=== PATIENT | female | born 1970 | race Caucasian/White ===

== ENCOUNTER 2019-09-22 09:43 | Day surgery (SDC) | payer OTHER ==
[~2019-09-22 09:43] MED LIST: PROPOFOL INJ 200 MG/20 ML VIAL IV ONE
[2019-09-22 13:09] VITALS: BP 112/79
--- NOTE | 2019-09-22 13:29 | Operative Report ---
Operative Report DATE OF SURGERY: 09/22/19 Operative Report: The risk, benefits and alternatives of the procedure including the risk of bleeding, perforation requiring surgery have been explained to the patient in detail and informed consent has been obtained. The patient is placed in a left, lateral decubital position. Timeout was called. Propofol medication is administered. Rectal examination is done which did not reveal any masses, tears or fissures. An Olympus videoscope was introduced into the patient's rectum. Scope was then carefully advanced all the way to the cecum. Cecum was identified by the usual anatomical landmarks including the ileocecal valve as well as the appendiceal office. Photodocumentation is obtained. Scope was then sequentially pulled back via the various segments of the colon including the ascending colon, back flexure, transverse colon, splenic flexure, descending colon and finally into the rectosigmoid portions of the colon. Retroflexion maneuver is performed. PREOPERATIVE DIAGNOSIS: Colorectal cancer screening POSTOPERATIVE DIAGNOSIS: Normal colonoscopy OPERATION: Diagnostic colonoscopy SURGEON: EM LUNA ANESTHESIA: LMAC TISSUE REMOVED OR ALTERED: None. COMPLICATIONS: None. ESTIMATED BLOOD LOSS: None. INTRAOPERATIVE FINDINGS: Incidental finding of diverticulosis and internal hemorrhoids. PROCEDURE: Patient tolerated the procedure well. No immediate postprocedure complications are noted. Patient is discharged in good condition. Discharge date 09/22/2019. Discharge diet: Regular. Discharge activity: Regular. 2 to 3-week follow-up to discuss findings. Patient is instructed to call the office or proceed to the emergency room should there be any further problems or questions. Because of your family history of colon cancer 5-year surveillance colonoscopy.
== END 2019-09-22 12:10 | disposition home or self-care (01) ==
LOC: OROUT 09:43
PROVIDERS: ATTEND Internal Medicine Gastroenterology
DX: Z88.0 Allergy status to penicillin (principal); K92.1 Melena; Z88.2 Allergy status to sulfonamides; Z88.5 Allergy status to narcotic agent; K64.8 Other hemorrhoids; K57.30 Diverticulosis of large intestine without perforation or abscess without bleeding; E11.9 Type 2 diabetes mellitus without complications
CPT/HCPCS: 45380; 82962; J2704; 812